=== PATIENT | female | born 1970 | race Caucasian/White ===

== ENCOUNTER → 2016-09-27 | Outpatient (CLI) | payer OTHER, BC ==
--- NOTE | 2016-09-27 09:21 | REPMRS ---
Patient History The patient states she had a clinical breast exam in 09/2016. Family history of breast cancer in maternal grandmother at age 50 or over. Benign stereotatic breast biopsy of the right breast, May 08, 2011. Digital Woman Screen Mammo: September 27, 2016 - Exam #: [id number] Bilateral CC and MLO view(s) were taken. Technologist: Evonne Sorenson, Technologist Prior study comparison: September 01, 2015, digital woman screen mammo performed at [facility]. August 31, 2014, digital woman screen mammo performed at [facility]. FINDINGS: The breast tissue is heterogeneously dense. This may lower the sensitivity of mammography. There has been no change in the appearance of the mammogram from the prior studies. There is a moderate amount of residual fibroglandular tissue which is fairly symmetric. There is no interval development of dominant mass, areas of architectural distortion, or clustered microcalcification typical of malignancy. ASSESSMENT: BI-RADS/ACR category 1 mammogram. Negative. Recommendation Routine screening mammogram in 1 year (for women over age 40). This mammogram was interpreted with the aid of an FDA-approved computer-aided dectection system. Electronically Signed By: Ed Briscoe MD 09/27/16 [id number]
== END ==
LOC: M WHC 08:09
PROVIDERS: ATTEND Nurse Practitioner Family
DX: Z12.31 Encounter for screening mammogram for malignant neoplasm of breast (principal); Z80.3 Family history of malignant neoplasm of breast

== ENCOUNTER → 2017-11-07 | Outpatient (CLI) | payer OTHER, BC | LOC: M WHC 08:28 | DX: Z12.31 Encounter for screening mammogram for malignant neoplasm of breast (principal); Z80.3 Family history of malignant neoplasm of breast | CPT/HCPCS: 77067 ==

== ENCOUNTER 2018-03-11 23:06 | Emergency (ER) | payer OTHER, BC ==
[2018-03-12 00:51] LABS: CONTROL LINE HCG INT CTR LINE PRESENT; HCG, SERUM QUALITATIVE NEGATIVE (NEGATIVE)
[2018-03-12 00:52] LABS: BASO % 0.2 % (0.0-1.0); EOS % 0.1 % (0.0-3.0); HEMATOCRIT 40.1 % (36.0-47.0); HEMOGLOBIN 13.9 g/dl (12.0-15.5); IMMATURE GRANULOCYTE % 0.2 % (0-3.0); LYMPH # 0.7 10^3/uL (1.5-4.5); LYMPH % 4.3 % (24.0-44.0); MEAN CORPUSCULAR HEMOGLOBIN 30.6 pg (27.0-33.0); MEAN CORPUSCULAR HGB CONC 34.7 g/dl (32.0-36.5); MEAN CORPUSCULAR VOLUME 88.3 fl (80.0-96.0); MONO # 0.8 10^3/uL (0.0-0.8); MONO % 4.9 % (0.0-5.0); NEUTROPHILS % 90.3 % (36.0-66.0); PLATELET COUNT, AUTOMATED 323 10^3/uL (150-450); RED BLOOD COUNT 4.54 10^6/uL (4.00-5.40); RED CELL DISTRIBUTION WIDTH 12.3 % (11.5-14.5); WHITE BLOOD COUNT 15.5 10^3/uL (4.0-10.0)
[2018-03-12 01:04] LABS: ALBUMIN 3.9 GM/DL (3.2-5.2); ALBUMIN/GLOBULIN RATIO 1.22 (1.00-1.93); ALKALINE PHOSPHATASE 54 U/L (45-117); ALT/SGPT 36 U/L (12-78); ANION GAP 10 MEQ/L (8-16); AST/SGOT 18 U/L (7-37); BILIRUBIN,DIRECT 0.3 MG/DL (0.0-0.2); BILIRUBIN,TOTAL 1.1 MG/DL (0.2-1.0); BLOOD UREA NITROGEN 10 MG/DL (7-18); CALCIUM LEVEL 9.4 MG/DL (8.5-10.1); CARBON DIOXIDE LEVEL 26 MEQ/L (21-32); CHLORIDE LEVEL 105 MEQ/L (98-107); CREATININE FOR GFR 0.81 MG/DL (0.55-1.30); GLOMERULAR FILTRATION RATE > 60.0 (>58); GLUCOSE, FASTING 136 MG/DL (70-100); KETONE, URINE AUTO RFX 2+ mg/dL (NEGATIVE); LEUKOCYTE ESTERASE UR AUTO RFX NEGATIVE (NEGATIVE); LIPASE 108 U/L (73-393); MUCUS, URINE RFX SMALL (NEGATIVE); NITRITE, URINE AUTO RFX NEGATIVE (NEGATIVE); POTASSIUM SERUM 4.1 MEQ/L (3.5-5.1); RBC, URINE AUTO RFX 2 /HPF (0-3); SODIUM LEVEL 141 MEQ/L (136-145); SPECIFIC GRAVITY UR AUTO RFX 1.025 (1.002-1.035); SQUAM EPITHELIAL CELL UR AURFX 1 /HPF (0-6); TOTAL PROTEIN 7.1 GM/DL (6.4-8.2); WBC, URINE AUTO RFX 3 /HPF (0-3)
[2018-03-12] MEDS ORDERED: GASTROGRAFIN SOLUTION 30ML (Q9963) As Ordered (01:57)
[2018-03-12] MEDS: GASTROGRAFIN SOLUTION 30ML PO ×2 (02:00→02:30)
[2018-03-12] MEDS ORDERED: ISOVUE-370 76% 100ML VIAL (Q9967) As Ordered (03:32)
[2018-03-12] MEDS: MORPHINE 2 MG/ML 1ML SYRINGE (J2270) IV ×2 (03:51→06:59)
[2018-03-12] MEDS: ONDANSETRON 4MG/2ML VIAL (J2405) IV (03:51)
[2018-03-12] MEDS: NS 1,000 ML IV (03:54)
[2018-03-12 06:43] LABS: CHLAMYDIA DNA AMPLIFICATION NEGATIVE (NEGATIVE); GC DNA AMPLIFICATION NEGATIVE (NEGATIVE)
[2018-03-12] MEDS: OXYCODONE/APAP 5MG/325MG(BULK FOR ED) 1 TABLET PO (06:58)
== END 2018-03-12 07:02 | disposition home or self-care (01) ==
LOC: M ED 23:06
DX: N70.11 Chronic salpingitis (principal)
CPT/HCPCS: J2405

== ENCOUNTER 2018-03-14 20:44 | Emergency (ER) | payer OTHER, BC ==
[2018-03-15] MEDS: KETOROLAC 30 MG/ML VIAL (J1885) IV (00:09)
[2018-03-15 00:36] LABS: APPEARANCE, URINE CLEAR (CLEAR); BACTERIA, URINE AUTO NEGATIVE (NEGATIVE); BILIRUBIN, URINE AUTO NEGATIVE (NEGATIVE); BLOOD, URINE BLOOD 2+ (NEGATIVE); COLOR, URINE YELLOW (YELLOW); GLUCOSE, URINE (UA) AUTO NEGATIVE (NEGATIVE); KETONE, URINE AUTO 1+ mg/dL (NEGATIVE); LEUKOCYTE ESTERASE, URINE AUTO NEGATIVE (NEGATIVE); NITRITE, URINE AUTO NEGATIVE (NEGATIVE); PROTEIN, URINE AUTO NEGATIVE (NEGATIVE); RBC, URINE AUTO 1 /HPF (0-3); SPECIFIC GRAVITY URINE AUTO 1.004 (1.002-1.035); SQUAMOUS EPITHELIAL CELL UR AU 0 /HPF (0-6); WBC, URINE AUTO 2 /HPF (0-3)
[2018-03-15 00:43] LABS: ALBUMIN 2.7 GM/DL (3.2-5.2); ALBUMIN/GLOBULIN RATIO 0.63 (1.00-1.93); ALKALINE PHOSPHATASE 93 U/L (45-117); ALT/SGPT 19 U/L (12-78); AMYLASE 23 U/L (25-115); ANION GAP 8 MEQ/L (8-16); AST/SGOT 12 U/L (7-37); BILIRUBIN,TOTAL 0.7 MG/DL (0.2-1.0); BLOOD UREA NITROGEN 9 MG/DL (7-18); CALCIUM LEVEL 8.8 MG/DL (8.5-10.1); CARBON DIOXIDE LEVEL 27 MEQ/L (21-32); CHLORIDE LEVEL 101 MEQ/L (98-107); CREATININE FOR GFR 0.74 MG/DL (0.55-1.30); GLOMERULAR FILTRATION RATE > 60.0 (>58); GLUCOSE, FASTING 97 MG/DL (70-100); LIPASE 48 U/L (73-393); POTASSIUM SERUM 3.2 MEQ/L (3.5-5.1); SODIUM LEVEL 136 MEQ/L (136-145)
[2018-03-15 00:44] LABS: BASO % 0.1 % (0.0-1.0); EOS % 0.2 % (0.0-3.0); HEMATOCRIT 34.2 % (36.0-47.0); HEMOGLOBIN 11.9 g/dl (12.0-15.5); LYMPH # 0.5 10^3/uL (1.5-4.5); LYMPH % 3.8 % (24.0-44.0); MEAN CORPUSCULAR HEMOGLOBIN 30.2 pg (27.0-33.0); MEAN CORPUSCULAR HGB CONC 34.8 g/dl (32.0-36.5); MEAN CORPUSCULAR VOLUME 86.8 fl (80.0-96.0); MONO # 0.6 10^3/uL (0.0-0.8); MONO % 4.6 % (0.0-5.0); NEUTROPHILS # 12.5 10^3/uL (1.8-7.7); NEUTROPHILS % 90.3 % (36.0-66.0); PLATELET COUNT, AUTOMATED 310 10^3/uL (150-450); RED BLOOD COUNT 3.94 10^6/uL (4.00-5.40); RED CELL DISTRIBUTION WIDTH 11.9 % (11.5-14.5); WHITE BLOOD COUNT 13.9 10^3/uL (4.0-10.0)
[2018-03-15] MEDS ORDERED: ISOVUE-370 76% 100ML VIAL (Q9967) As Ordered (00:51)
[2018-03-15] MEDS: AMPICILLIN SOD/SULBACTAM SOD 3 GM in D5W MINI-BAG PLUS 100 ML IV (03:37)
[2018-03-15] MEDS ORDERED: PERCOCET 5MG/325MG TAB PO ×2 (03:45)
== END 2018-03-15 04:45 | disposition home or self-care (01) ==
LOC: M ED 03-15 04:45
DX: N70.11 Chronic salpingitis (principal); N83.202 Unspecified ovarian cyst, left side; Z87.42 Personal history of other diseases of the female genital tract; Z98.890 Other specified postprocedural states; Z87.59 Personal history of other complications of pregnancy, childbirth and the puerperium; Z79.2 Long term (current) use of antibiotics
CPT/HCPCS: Q9967

== ENCOUNTER → 2018-03-17 | Outpatient (CLI) | payer OTHER, BC ==
[2018-03-17 11:09] LABS: HEMATOCRIT 37.5 % (36.0-47.0); MEAN CORPUSCULAR HEMOGLOBIN 30.4 pg (27.0-33.0); MEAN CORPUSCULAR HGB CONC 34.7 g/dl (32.0-36.5); MEAN CORPUSCULAR VOLUME 87.6 fl (80.0-96.0); PLATELET COUNT, AUTOMATED 396 10^3/uL (150-450); RED BLOOD COUNT 4.28 10^6/uL (4.00-5.40); RED CELL DISTRIBUTION WIDTH 12.2 % (11.5-14.5); WHITE BLOOD COUNT 9.9 10^3/uL (4.0-10.0)
== END ==
LOC: M LAB 10:42
DX: N83.209 Unspecified ovarian cyst, unspecified side (principal)
CPT/HCPCS: 85027

== ENCOUNTER → 2018-04-13 | Outpatient (CLI) | payer OTHER, BC | LOC: M RAD 12:39 | DX: N70.11 Chronic salpingitis (principal) | CPT/HCPCS: 76856 ==

== ENCOUNTER → 2018-11-13 | Outpatient (REF) | payer OTHER, BC ==
[~2018-11-13] MED LIST: DOXY-350 PO; IBUP1TAB7 PO; OXYC1TAB23 PO
[2018-11-13 12:08] LABS: HEMATOCRIT 42.6 % (36.0-47.0); HEMOGLOBIN 14.4 g/dl (12.0-15.5); MEAN CORPUSCULAR HEMOGLOBIN 30.2 pg (27.0-33.0); MEAN CORPUSCULAR HGB CONC 33.8 g/dl (32.0-36.5); MEAN CORPUSCULAR VOLUME 89.3 fl (80.0-96.0); PLATELET COUNT, AUTOMATED 358 10^3/uL (150-450); RED BLOOD COUNT 4.77 10^6/uL (4.00-5.40); WHITE BLOOD COUNT 7.3 10^3/uL (4.0-10.0)
[2018-11-17 14:16] LABS: HPV HYBRID CAPTURE II Negative (Negative)
== END ==
LOC: M SFHCWAGY 08:35
PROVIDERS: ATTEND Nurse Practitioner Family
DX: Z12.4 Encounter for screening for malignant neoplasm of cervix (principal); R53.83 Other fatigue; R89.5 Abnormal microbiological findings in specimens from other organs, systems and tissues
CPT/HCPCS: 36415; 84443; 85027; 87624; G0123

== ENCOUNTER → 2018-11-13 | Outpatient (CLI) | payer OTHER, BC ==
--- NOTE | 2018-11-13 09:55 | REPMRS ---
Patient History The patient states she had a clinical breast exam in 11/2018. Family history of breast cancer at age 50 or over in maternal grandmother. Benign stereotatic breast biopsy of the right breast, May 08, 2011. 3D TOMOSYNTHESIS WAS PERFORMED. Digital Woman Screen Mammo: November 13, 2018 - Exam #: [id number] Bilateral CC and MLO view(s) were taken. Technologist: Beverly Farias, Technologist Prior study comparison: November 07, 2017, digital woman screen mammo performed at [facility]. September 27, 2016, digital woman screen mammo performed at [facility]. FINDINGS: The breast tissue is heterogeneously dense. This may lower the sensitivity of mammography. There has been no change in the appearance of the mammogram from the prior studies. There is a moderate amount of residual fibroglandular tissue which is fairly symmetric. There is no interval development of dominant mass, areas of architectural distortion, or clustered microcalcification typical of malignancy. Assessment: BI-RADS/ACR category 1 mammogram. Negative Mammogram. Recommendation Routine screening mammogram in 1 year (for women over age 40). This mammogram was interpreted with the aid of an FDA-approved computer-aided dectection system. Electronically Signed By: Ed Briscoe MD 11/13/18 0955
== END ==
LOC: M WHC 07:58
PROVIDERS: ATTEND Nurse Practitioner Family
DX: Z12.31 Encounter for screening mammogram for malignant neoplasm of breast (principal)

== ENCOUNTER → 2019-11-19 | Outpatient (CLI) | payer OTHER ==
--- NOTE | 2019-11-19 09:15 | REPMRS ---
Patient History The patient states she had a clinical breast exam in November 2019. Family history of breast cancer at age 50 or over in maternal grandmother. Benign stereotatic breast biopsy of the right breast, May 08, 2011. Digital Woman Screen Mammo: November 19, 2019 - Exam #: [id number] Bilateral CC and MLO view(s) were taken. Technologist: Skylar Acevedo, Technologist Prior study comparison: November 13, 2018, bilateral digital woman screen mammo performed at [facility]. November 07, 2017, digital woman screen mammo performed at [facility]. September 27, 2016, digital woman screen mammo performed at [facility]. FINDINGS: The breast tissue is heterogeneously dense. This may lower the sensitivity of mammography. The Volpara volumetric breast density category is: C. There is a needle biopsy marker clip again noted in the right breast. There is a moderate amount of heterogeneously dense fibroglandular tissue which is fairly symmetric. There is no interval development of dominant mass, architectural distortion, or grouped microcalcification typical of malignancy. There has been no change in the appearance of the mammogram from the prior studies. 3-D tomosynthesis shows no additional findings. Assessment: BI-RADS/ACR category 2 mammogram. Benign Findings. Recommendation Routine screening mammogram of both breasts in 1 year (for women over age 40). This patient's Lifetime Breast Cancer RIsk is estimated at 13.8 %. This mammogram was interpreted with the aid of an FDA-approved computer-aided dectection system. Electronically Signed By: Elmer Russell MD 11/19/19 0914
== END ==
LOC: M WHC 08:12
PROVIDERS: ATTEND Nurse Practitioner Family
DX: Z12.31 Encounter for screening mammogram for malignant neoplasm of breast (principal)

== ENCOUNTER → 2021-02-01 | Outpatient (CLI) | payer OTHER, BC ==
--- NOTE | 2021-02-01 12:41 | REPMRS ---
Patient History The patient states she had a clinical breast exam in January 2021. Family history of breast cancer at age 50 or over in maternal grandmother. Benign stereotatic breast biopsy of the right breast, May 08, 2011. Patient states no breast complaints today. Patient has signed MRS History Sheet. Digital Woman Screen Mammo: February 01, 2021 - Exam #: [id number] Bilateral CC and MLO view(s) were taken. Technologist: Radha Botello, Technologist Prior study comparison: November 19, 2019, bilateral digital woman screen mammo performed at [facility]. November 13, 2018, bilateral digital woman screen mammo performed at [facility]. FINDINGS: There are scattered fibroglandular densities. Screening. Digital screening (2D) mammography was performed bilaterally in the CC and MLO projections. Additionally, breast tomosynthesis (3D mammography) was performed bilaterally in the CC and MLO projections. Todays exam was compared to the prior exam/exams. By history, the patient has no complaints of a palpable breast abnormality or other significant breast complaints. The breasts are unchanged in size and shape. There are no brigitte-soft tissue densities or spiculated masses. There is no internal architectural distortion. There are no suspicious brigitte-calcific clusters. Skin thickening or nipple retraction is not present. IMPRESSION: BI-RADS Category 2- Benign Findings. There is no evidence of malignant alteration of the breasts. Followup examination recommended in one year. The Volpara volumetric breast density category is B, there are scattered areas of fibroglandular densities. This mammogram was read with the assistance of [facility] [employer],an FDA approved computer aided detection system for mammography. The lifetime Tyrer-Cuzick score is 13.5 % Negative x-ray reports should not delay surgical consultation if a dominant or clinically suspicious mass is present. Not all breast cancers can be identified by mammography. Therefore, we recommend that you continue to perform regular breast self-examination and physical examination and then promptly contact your physician of any concerns or changes. Adenosis and dense breasts may obscure an underlying neoplasm. Assessment: BI-RADS/ACR category 2 mammogram. Benign Findings. Recommendation Routine screening mammogram of both breasts in 1 year. Electronically Signed By: Eris Oconnor DO 02/01/21 [id number]
== END ==
LOC: M WHC 11:56
PROVIDERS: ATTEND Nurse Practitioner Women's Health
DX: Z12.31 Encounter for screening mammogram for malignant neoplasm of breast (principal)

== ENCOUNTER → 2021-02-01 | Outpatient (REF) | payer OTHER, BC | LOC: M SFHCWAGY 18:07 | PROVIDERS: ATTEND Nurse Practitioner Women's Health | DX: Z12.4 Encounter for screening for malignant neoplasm of cervix (principal) | CPT/HCPCS: 87624; G0123 ==

== ENCOUNTER → 2022-04-15 | Outpatient (CLI) | payer OTHER, BC | LOC: M WHC 07:13 | PROVIDERS: ATTEND Nurse Practitioner Family | DX: Z12.31 Encounter for screening mammogram for malignant neoplasm of breast (principal) ==

== ENCOUNTER → 2022-04-15 | Outpatient (REF) | payer OTHER, BC | LOC: M SFHCWAGY 13:54 | PROVIDERS: ATTEND Nurse Practitioner Family | DX: Z12.4 Encounter for screening for malignant neoplasm of cervix (principal) | CPT/HCPCS: 87624; G0123 ==

== ENCOUNTER → 2023-04-30 | Outpatient (CLI) | payer OTHER ==
[~2023-04-30] MED LIST changes: -DOXY-350 PO; +DOXY-444 PO
== END ==
LOC: M WHC 07:14
PROVIDERS: ATTEND Nurse Practitioner Family
DX: Z12.31 Encounter for screening mammogram for malignant neoplasm of breast (principal); R92.333 Mammographic heterogeneous density, bilateral breasts

== ENCOUNTER → 2023-04-30 | Outpatient (REF) | payer OTHER | LOC: M SFHCWAGY 13:21 | PROVIDERS: ATTEND Nurse Practitioner Family | DX: Z12.4 Encounter for screening for malignant neoplasm of cervix (principal) | CPT/HCPCS: 87624; G0123 ==

== ENCOUNTER → 2024-05-04 | Outpatient (CLI) | payer OTHER ==
[~2024-05-04] MED LIST changes: +DOXY-440 PO; -DOXY-444 PO
== END ==
LOC: M WHC 07:16
PROVIDERS: ATTEND Nurse Practitioner Family
DX: Z12.31 Encounter for screening mammogram for malignant neoplasm of breast (principal); R92.323 Mammographic fibroglandular density, bilateral breasts

== ENCOUNTER → 2024-05-04 | Outpatient (REF) | payer OTHER ==
[2024-05-06 18:42] LABS: HPV APTIMA Not Detected (Not Detected)
== END ==
LOC: M SFHCWAGY 14:55
PROVIDERS: ATTEND Nurse Practitioner Family
DX: Z12.4 Encounter for screening for malignant neoplasm of cervix (principal)

== ENCOUNTER → 2025-05-05 | Outpatient (CLI) | payer OTHER | LOC: M WHC 09:45 | PROVIDERS: ATTEND Nurse Practitioner Family | DX: Z12.31 Encounter for screening mammogram for malignant neoplasm of breast (principal) ==